=== PATIENT | male | born 1995 | race Caucasian/White ===

== ENCOUNTER 2019-04-11 11:40 | Emergency (ER) | payer OTHER, SELFPAY ==
[2019-04-11 12:11] VITALS: BP 114/75; PULSE 75; RESP 20; TEMP 36.9; O2SAT 98
--- NOTE | 2019-04-11 12:12 | DI.RAD.S_ITS ---
PROCEDURE: XR CHEST 2V INDICATIONS: cough/fever TECHNIQUE: 2 views of the chest were acquired. COMPARISON: None. FINDINGS: Surgical changes and devices: None. Lungs and pleura: Lungs are clear. No pleural effusions or pneumothorax. Mediastinum: Mediastinal contours are normal. Heart size is normal. Bones and chest wall: No suspicious bony abnormalities. Soft tissues appear unremarkable. IMPRESSION: Negative chest. No acute cardiopulmonary process is evident. Dictated by: Corey Garcia M.D. on 04/11/2019 at 11:32 Approved by: Corey Garcia M.D. on 04/11/2019 at 11:36
[2019-04-11 12:46] LABS: Influenza A - CEPHEID Flu A NEGATIVE (NEGATIVE); Influenza B - CEPHEID Flu B NEGATIVE (NEGATIVE)
[2019-04-11 13:30] VITALS: BP 102/63; PULSE 74; RESP 16; O2SAT 98
--- NOTE | 2019-04-11 13:55 | ED_ITS ---
HPI - URI/Sore Throat <JOSE Lawson - Last Filed: 04/11/19 14:00> General Chief Complaint: Upper Respiratory Symptoms Stated Complaint: Coughing With Blood Time Seen by Provider: 04/11/19 12:06 Source: patient Mode of arrival: Ambulatory Limitations: no limitations History of Present Illness HPI Narrative: The patient is a 24-year-old male who presents with a chief complaint of 2 weeks of coughing, muscle aches and chills. He is concerned he has pneumonia. States it is a nonproductive dry cough. Has tried Mucinex and nothing else to feel better. Denies any nausea vomiting or diarrhea. States he is eating and drinking well. Denies any shortness of breath. Denies any ear pain or sore throat. Related Data Home Medications Medication Instructions Recorded Confirmed bupropion HCl 300 mg PO DAILY 04/11/19 04/11/19 Previous Rx's Medication Instructions Recorded benzonatate 100 mg PO BID-TID PRN #20 cap 04/11/19 promethazine-DM 5 ml PO Q4-6H PRN #50 ml 04/11/19 Review of Systems <JOSE Lawson - Last Filed: 04/11/19 14:00> Review of Systems Narrative: GENERAL: See HPI HEENT: Denies sinus pain, ear pain, sore throat, difficulty swallowing, dizziness. RESPIRATORY: See HPI CARDIOVASCULAR: Denies chest pain, palpitations, orthopnea, edema, GASTROINTESTINAL: Denies nausea, vomiting, abdominal pain, diarrhea, constipation, melena. : Denies dysuria, frequency, incontinence, hematuria, urinary retention. MUSCULOSKELETAL: denies weakness, joint pain, or bony pain SKIN: Denies rash, skin lesions, or other NEUROLOGIC: Denies weakness, headache, numbness, change in speech, confusion, seizures, incoordination. PSYCHIATRIC: No concerning psychosocial issues. 12 point review of systems is negative except for those stated above Patient History <JOSE Lawson - Last Filed: 04/11/19 14:00> Social History Smoking Status: Never smoker Smoking Status: Never smoker alcohol intake frequency: holidays/special occasions only Substance Use Type: does not use Exam <JOSE Lawson - Last Filed: 04/11/19 14:00> Narrative Exam Narrative: GENERAL: This is a well-nourished, well-developed patient, in no acute distress HEAD: Atraumatic. Normocephalic. No temporal or scalp tenderness. EYES: Pupils equal round and reactive. Extraocular motions intact. No scleral icterus. No injection or drainage. ENT: Nose without bleeding, purulent drainage or septal hematoma. Throat without erythema, tonsillar hypertrophy or exudate. Uvula midline. Airway patent. Bilateral TMs pearly sam. NECK: Trachea midline. No JVD or lymphadenopathy. Supple, nontender, no meningeal signs. CARDIOVASCULAR: Regular rate and rhythm RESPIRATORY: Clear to auscultation. Breath sounds equal bilaterally. No wheezes, rales, or rhonchi. Occasional cough. No increased respiratory effort. Speaking full sentences. No accessory muscle use. GASTROINTESTINAL: Abdomen soft, non-tender, nondistended. No hepato- splenomegaly, or palpable masses. No guarding. EXTREMITIES: No clubbing, cyanosis, or edema. No joint tenderness, effusion, or edema noted. BACK: Nontender without deformity or crepitance. No flank tenderness. NEURO: AOx3. SKIN: No rash or erythema. Initial Vital Signs Initial Vital Signs: Vital Signs Temperature 98.4 F 04/11/19 12:11 Pulse Rate 75 04/11/19 12:11 Respiratory Rate 04/11/19 12:11 Blood Pressure 114/75 04/11/19 12:11 Pulse Oximetry 98 04/11/19 12:11 <Mitzi Seymour DO - Last Filed: 04/12/19 07:07> Initial Vital Signs Initial Vital Signs: Vital Signs Temperature 98.4 F 04/11/19 12:11 Pulse Rate 75 04/11/19 12:11 Respiratory Rate 04/11/19 12:11 Blood Pressure 114/75 04/11/19 12:11 Pulse Oximetry 98 04/11/19 12:11 Scores <JOSE Lawson - Last Filed: 04/11/19 14:00> GCS Bijal coma scale eye opening: Spontaneous Bijal coma scale verbal response: Orientated Bijal coma scale motor response: Obey commands Richardson coma scale total score: 15 Course <JOSE Lawson - Last Filed: 04/11/19 14:00> Orders Ordered: ED Orders 04/11/19 12:12 XR chest 2V Stat 04/11/19 12:13 Influenza A & B (PCR) Stat Vital Signs Vital signs: Vital Signs - 8 hr 04/11/19 12:11 04/11/19 13:30 Temperature 98.4 F Pulse Rate 75 74 Respiratory Rate 20 16 Blood Pressure 114/75 Blood Pressure [Right Arm] 102/63 Pulse Oximetry 98 98 <Mitzi Seymour DO - Last Filed: 04/12/19 07:07> Orders Ordered: ED Orders 04/11/19 12:12 XR chest 2V Stat 04/11/19 12:13 Influenza A & B (PCR) Stat Vital Signs Vital signs: Vital Signs - 8 hr 04/11/19 12:11 04/11/19 13:30 Temperature 98.4 F Pulse Rate 75 74 Respiratory Rate 20 16 Blood Pressure 114/75 Blood Pressure [Right Arm] 102/63 Pulse Oximetry 98 98 MDM - URI/Sore Throat <JOSE Lawson - Last Filed: 04/11/19 14:00> Lab Data Labs: Lab Results 04/11/19 Range/Units 12:13 Influenza A (RT-PCR) Flu a negative (NEGATIVE) Influenza B (RT-PCR) Flu b negative (NEGATIVE) Imaging Data Chest x-ray: Radiologist's Impression: [address] [place] [id number] XRay Report Signed Patient: Rodolfo Correa KMR#: [id number] : 1995Acct:[id number] Age/Sex: 24 / MDate of Service: 04/11/19 Loc: ED Accession Number: [id number] Procedure: XR chest 2V Ordering Provider: Hayley Sharma PROCEDURE: XR CHEST 2V INDICATIONS: cough/fever TECHNIQUE: 2 views of the chest were acquired. COMPARISON: None. FINDINGS: Surgical changes and devices: None. Lungs and pleura: Lungs are clear. No pleural effusions or pneumothorax. Mediastinum: Mediastinal contours are normal. Heart size is normal. Bones and chest wall: No suspicious bony abnormalities. Soft tissues appear unremarkable. IMPRESSION: Negative chest. No acute cardiopulmonary process is evident. Dictated by: Corey Garcia M.D. on 04/11/2019 at 11:32 Approved by: Corey Garcia M.D. on 04/11/2019 at 11:36 [facility] Narrative Medical decision making narrative: The patient is a 24-year-old male presents with a chief complaint of a cough muscle aches and chills. He is nontoxic appearing, eating and drinking well. For test is negative. Chest x-ray shows no pneumonia. Discussed at length rest, pushing fluids use of [id number] medications as needed and able. I did give him prescription of dextromethorphan with Phenergan to help sleep. Also give prescription test long periods. Encouraged follow-up with primary care provider in the next few days. Gave him contact information [facility] corporate director of human resources. Discussed return precautions the emergency department. Patient has no questions or c oncerns upon discharge and states understanding of return precautions as well as follow-up care. <Mitzi Seymour DO - Last Filed: 04/12/19 07:07> Lab Data Labs: Lab Results 04/11/19 Range/Units 12:13 Influenza A (RT-PCR) Flu a negative (NEGATIVE) Influenza B (RT-PCR) Flu b negative (NEGATIVE) Discharge Plan Departure Patient Disposition: Home Clinical Impression: Cough Upper respiratory infection Qualifiers: URI type: unspecified viral URI Qualified Code(s): J06.9 - Acute upper respira tory infection, unspecified Discharge Date/Time: 04/11/19 13:35 Instructions: DI for Cough -- Adult, DI for Acute Bronchitis, DI for Viral Upper Respiratory Infection -- Adult Activity Restrictions/Additional Instructions: Your x-ray shows no pneumonia. Your flu test came back negative. Please follow-up with primary care provider. I've given you contact information [facility] corporate director of human resources. I've sent 2 prescription for cough medication to [facility]. Please use this syrup when you need to sleep. Do not take that drive. That can be sedating Please continue over the counter medications as needed and able Please come back to emergency department for any acute concerns Prescriptions: New promethazine-DM 6.25-15 mg/5 mL syrup 5 ml PO Q4-6H PRN (Reason: cough) Qty: 50 RF: 0 benzonatate 100 mg capsule 100 mg PO BID-TID PRN (Reason: cough) Qty: 20 RF: 0 No Action bupropion HCl 300 mg tablet extended release 24 hr 300 mg PO DAILY RF: 0 Referrals: [facility] [Outside]
== END 2019-04-11 13:35 | disposition home or self-care (01) ==
PROVIDERS: Emergency Provider Nurse Practitioner Family
DX: R05 Cough (principal); J06.9 Acute upper respiratory infection, unspecified
CPT/HCPCS: 71046; 87502; 99281; 99283

== ENCOUNTER → 2020-01-13 14:33 | Outpatient (CLI) | payer OTHER, SELFPAY ==
[2020-01-14 23:54] LABS: COVID19 Sendout Not Detected (Not Detect)
== END ==
PROVIDERS: Visit Provider Physician Assistant
DX: Z11.59 Encounter for screening for other viral diseases (principal); R05 Cough
CPT/HCPCS: 87635

== ENCOUNTER → 2020-01-14 10:46 | Outpatient (CLI) | payer OTHER, SELFPAY ==
--- NOTE | 2020-01-14 10:46 | DI.RAD.S_ITS ---
PROCEDURE: XR CHEST 2V INDICATIONS: cough TECHNIQUE: 2 views of the chest were acquired. COMPARISON: [facility], CR, XR CHEST 2V, 04/11/2019, 12:17. FINDINGS: Surgical changes and devices: None. Lungs and pleura: An incomplete inspiratory result is noted, causing a crowded appearance to the lung markings. No focal infiltrates are seen. No pneumothorax or significant pleural effusions are seen. Mediastinum: Mediastinal contours are normal. Heart size is normal. Bones and chest wall: No suspicious bony abnormalities. Mild dextroconvex scoliotic curvature is seen. Soft tissues appear unremarkable. IMPRESSION: Limited chest study, without focal infiltrates identified. Dictated by: Phani Damon M.D. on 01/14/2020 at 10:13 Approved by: Phani Damon M.D. on 01/14/2020 at 10:14
== END ==
PROVIDERS: Referring Provider Physician Assistant; Visit Provider Physician Assistant
DX: R05 Cough (principal)
CPT/HCPCS: 71046